=== PATIENT | male | born 1975 | race Two or more races ===

== ENCOUNTER 2017-05-17 15:41 | Inpatient (IN) | payer BC, OTHER ==
[~2017-05-17] VITALS: Ht 185.4 cm; Wt 108.0 kg
--- NOTE | 2017-05-17 15:49 | NUR ---
PRESENTS SELF TO ED DT CHEST DISCOMFORT, PRESSURE LIKE, 5/10, NON RADIATING SINCE THIS MORNING. PATIENT IS AAO4. APPEARS IN NO APPARENT DISTRESS, RESPIRATION EVEN AND UNLABORED, SKIN IS WARM TO TOUCH AND NON DIAPHROETIC. PATIENT IS AFEBRILE. GOWNED PT AND PLACED ON TELE MONITOR. VSS
[2017-05-17 16:14] LABS: BASOPHILS # (AUTO) 0.1 /CMM (0.0-0.2); BASOPHILS % (AUTO) 0.7 % (0.0-2.0); EOSINOPHILS # (AUTO) 0.2 /CMM (0.0-0.7); HEMATOCRIT 48 % (39-51); LYMPHOCYTES # (AUTO) 1.9 /CMM (0.8-4.8); LYMPHOCYTES % (AUTO) 22.1 % (20.0-44.0); MEAN CORPUSCULAR HEMOGLOBIN 30 PG (26.0-33.0); MEAN CORPUSCULAR HGB CONC 33 g/dl (31.0-36.0); MEAN CORPUSCULAR VOLUME 91 fL (80-96); MONOCYTES # (AUTO) 0.4 /CMM (0.1-1.30); MONOCYTES % (AUTO) 4.4 % (2.0-12.0); NEUTROPHILS # (AUTO) 5.8 /CMM (1.8-8.9); NEUTROPHILS % (AUTO) 70.8 % (43.0-81.0); PLATELET COUNT (AUTO) 267 /CMM (150-450); RDW COEFFICIENT OF VARIATION 11.8 (11.5-15.0); RED BLOOD CELL COUNT(AUTO) 5.26 MIL/uL (4.5-6.0); WHITE BLOOD COUNT (AUTO) 8.4 K/uL (4.3-11.0)
[2017-05-17 16:37] LABS: CALCIUM, SERUM 9.2 mg/dL (8.5-10.1); CARBON DIOXIDE 27 mmol/L (21-32); CHLORIDE 104 mmol/L (98-107); CREATININE 0.9 mg/dL (0.6-1.3); GLUCOSE 131 mg/dL (74-106); POTASSIUM 4.1 mmol/L (3.5-5.1); SODIUM SERUM 139 mmol/L (136-145); UREA NITROGEN, BLOOD 11 mg/dL (7-18)
[2017-05-17 16:45] LABS: TROPONIN I < 0.017 ng/mL (0.00-0.056)
[2017-05-17 16:52] LABS: B-TYPE NATRIURETIC PEPTIDE 6 PG/ML (0-125)
[2017-05-17 17:24] LABS: INR 0.99 (0.87-1.13); PROTHROMBIN TIME 10.6 SECS (9.5-12.7)
--- NOTE | 2017-05-17 17:36 | NUR ---
CALLED NURSING SUP. FOR TELE BED
--- NOTE | 2017-05-17 17:37 | NUR ---
JONAH AMBROSIO, MARS MORELAND NP DIPLOMATIC INTERPRETER/TRANSLATOR
--- NOTE | 2017-05-17 18:09 | NUR ---
PT GOING TO TELE 309-1
[2017-05-17 18:24] LABS: CHOLESTEROL 241 mg/dL (<200); HDL CHOLESTEROL 26 mg/dL (40-60); LDL 159 mg/dL (0-99); TRIGLYCERIDES 453 mg/dL (30-150)
--- NOTE | 2017-05-17 18:29 | NUR ---
REPORT GIVEN TO NAZANIN Henderson FOR TELE ROOM 309-1.
--- NOTE | 2017-05-17 18:34 | NUR ---
ECG BEING DONE AT BS.
[2017-05-17] MEDS ORDERED: NITROGLYCERIN PACKET 1 GM PACKET ONE (18:53)
[2017-05-17] MEDS ORDERED: ASPIRIN 325 MG TABLET ONE (18:53)
--- NOTE | 2017-05-17 18:55 | NUR ---
ER NURSE HERE AND GAVE PT. 325 MG OF ASA AND A NTG PATCH.VS TAKEN.SEE GRAPHIC AND HOOKED UP TO TELE.RHYTHM SINUS RATE OF 77. AT BEDSIDE.
[2017-05-17 19:00] VITALS: BP 123/94
[2017-05-17] MEDS ORDERED: NITROGLYCERIN PACKET 1 GM PACKET TOP SCH (19:00)
[2017-05-17] MEDS ORDERED: ASPIRIN 325 MG TABLET PO SCH (19:00)
--- NOTE | 2017-05-17 19:30 | NUR ---
RN INITIAL NOTES RECEIVED PATIENT IN BED, AWAKE AND ALERT ORIENTED X4. PATIENT CAME IN TO UNIT AT 1850, ADMIT PROCESS STARTED. PATIENT DENIES ANY CHEST PAIN/DISCOMFORT AT THIS TIME, NO SOB, NO DIZZINESS. PATIENT IS ON ROOM AIR, NO RESPIRATORY DISTRESS. ST ON TELE WITH HR OF 111. SKIN IS INTACT. BELONGING'S LIST COMPLETED, FILED IN CHART. UNDER EPIC, PER ENDORSEMENT, MARS MORELAND TO ADMIT PATIENT, WILL F/UP ACCORDINGLY FOR ORDERS. PATIENT ORIENTED TO UNIT POLICY AND PROTOCOLS, CALL LIGHT KEPT IN REACH. NEEDS ANTICIPATED AND MET. SAFETY AND COMFORT ENSURED. BED IN LOW AND LOCKED POSITION. UPDATED WITH PLAN OF CARE NEEDED. ANSWERED QUESTIONS ACCORDINGLY. WILL MONITOR.
[2017-05-17 20:00] VITALS: BP_SYST 123; BP_DIAS 84; BP_DIAS 94
--- NOTE | 2017-05-17 20:30 | NUR ---
RN NOTES PATIENT STATES THAT HE USES CPAP AT NIGHT FOR SLEEP AID. PER PATIENT, HIS WILL BE BRINGING THE CPAP MACHINE HE USES AT NIGHT AND WANTS TO USE IT. INFORMED PATIENT OF THE HOSPITAL POLICY AND PROTOCOL FOR OUTSIDE EQUIPMENT USE. VERBALIZED UNDERSTANDING AND PATIENT COMPLIANT WITH USE OF THE HOSPITAL CPAP MACHINE. INFORMED MARS MORELAND, FIREPERSON, ADMIT ORDERS OBTAINED AND PATIENT MAY USE CPAP. COORDINATED WITH RT. PER PATIENT, HIS CPAP IS AT 14. NOTED.
[2017-05-17] MEDS ORDERED: Z GUARD REMEDY 2 OZ OINT TP PRN (21:00)
[2017-05-17] MEDS ORDERED: MAGNESIUM HYDROXIDE 30 ML UDC PO PRN (21:00)
[2017-05-17] MEDS ORDERED: ENOXAPARIN SODIUM 40 MG/0.4 ML DISP.SYRIN SQ SCH (21:00)
[2017-05-17] MEDS: ASPIRIN 81 MG TAB.CHEW PO SCH (21:00)
[2017-05-17] MEDS ORDERED: HYDROCODONE/APAP 5/325MG 1 EACH TABLET PO PRN (21:00)
[2017-05-17] MEDS ORDERED: ZOLPIDEM TARTRATE 5 MG TABLET PO PRN (21:00)
[2017-05-17] MEDS ORDERED: ONDANSETRON HCL/PF 4 MG/2 ML VIAL IVP PRN (21:00)
[2017-05-17] MEDS ORDERED: ATORVASTATIN 40 MG TABLET ONE (21:15)
[2017-05-17] MEDS ORDERED: ENOXAPARIN SODIUM 40 MG/0.4 ML DISP.SYRIN SQ ONE (21:15)
[2017-05-17] MEDS ORDERED: ATORVASTATIN 40 MG TABLET PO SCH (22:00)
[2017-05-17] MEDS ORDERED: ACETAMINOPHEN 325 MG TABLET ONE (22:19)
[2017-05-17] MEDS: ACETAMINOPHEN 325 MG TABLET PO PRN (22:24)
--- NOTE | 2017-05-17 23:43 | NUR ---
RT PT PLACED ON CPAP MACHINE PER MD ORDERS WITH NOTED SETTING. ,PT TOLERATING SETTING WELL. NO SOB OR DISTRESS NOTED. WILL CONTINUE TO MONITOR PT. Addendum: 05/17/17 at 2349 by SUMAN SALDAÑA RT Amended: Links added.
--- NOTE | 2017-05-17 23:56 | NUR ---
RN NOTES RT AT BEDSIDE TO CONNECT PATIENT TO CPAP. SETTINGS ADJUSTED PER HOSPITAL'S CPAP MACHINE AND PER PATIENT'S TOLERANCE. TOLERATED SETTINGS WELL. NEEDS ANTICIPATED AND MET. SR ON TELE AT THIS TIME, HR OF 75.
[2017-05-18] VITALS (9 sets, daily range): BP systolic 103–140; BP diastolic 46–78
--- NOTE | 2017-05-18 00:16 | NUR ---
RN NOTES PATIENT NOTED TO BE REMOVING CPAP MASK, PER PATIENT HE IS UNCOMFORTABLE WITH THE CPAP MACHINE/MASK. PATIENT VERBALIZES UNDERSTANDING OF THE PROTOCOL FOR OUTSIDE EQUIPMENT USAGE, PATIENT STATED HE WILL TRY WITHOUT THE CPAP TONIGHT. PATIENT PLACED ON 2LPM OF O2 VIA NC FOR COMFORT, PATIENT APPRECIATIVE, WILL MONITOR CLOSELY. INFORMED RT, WILL REASSESS.
[2017-05-18] MEDS ORDERED: HYDROCODONE/APAP 5/325MG 1 EACH TABLET ONE (02:50)
[2017-05-18 04:42] LABS: BASOPHILS % (AUTO) 0.4 % (0.0-2.0); EOSINOPHILS # (AUTO) 0.2 /CMM (0.0-0.7); EOSINOPHILS % (AUTO) 2.8 % (0.0-6.0); HEMATOCRIT 43 % (39-51); HEMOGLOBIN 15.1 g/dL (13.5-17.5); LYMPHOCYTES % (AUTO) 34.4 % (20.0-44.0); MEAN CORPUSCULAR HEMOGLOBIN 32 PG (26.0-33.0); MEAN CORPUSCULAR HGB CONC 35 g/dl (31.0-36.0); MEAN CORPUSCULAR VOLUME 91 fL (80-96); MONOCYTES # (AUTO) 0.5 /CMM (0.1-1.30); MONOCYTES % (AUTO) 5.6 % (2.0-12.0); NEUTROPHILS % (AUTO) 56.8 % (43.0-81.0); PLATELET COUNT (AUTO) 236 /CMM (150-450); RDW COEFFICIENT OF VARIATION 12.2 (11.5-15.0); RED BLOOD CELL COUNT(AUTO) 4.72 MIL/uL (4.5-6.0); WHITE BLOOD COUNT (AUTO) 8.8 K/uL (4.3-11.0)
[2017-05-18 05:03] LABS: CALCIUM, SERUM 8.8 mg/dL (8.5-10.1); CREATININE 0.9 mg/dL (0.6-1.3); MAGNESIUM 1.9 mg/dL (1.8-2.4); PHOSPHORUS 4.3 mg/dL (2.5-4.9); POTASSIUM 3.9 mmol/L (3.5-5.1)
--- NOTE | 2017-05-18 06:53 | NUR ---
RN CLOSING NOTES PATIENT WITH NO ACUTE DISTRESS OBSERVED OVERNIGHT. PATIENT UNABLE TO REST/SLEEP FOR THE NIGHT D/T DISCOMFORT AND THE UNDERLYING SLEEP APNEA WITH PATIENT BEING UNABLE TO USE OWN CPAP MACHINE. PATIENT SR ON TELE WITH HR OF 69. NO ACUTE DISTRESS. PATIENT'S NEEDS ANTICIPATED AND MET. SAFETY AND COMFORT ENSURED. BED IN LOW AND LOCKED POSITION. CALL LIGHT IN REACH. WILL ENDORSE ACCORDINGLY FOR CONTINUITY OF CARE.
[2017-05-18] MEDS ORDERED: PANTOPRAZOLE 40 MG TABLET.DR PO SCH (07:30)
--- NOTE | 2017-05-18 07:31 | NUR ---
RN OPEN NOTES RECEIVED REPORT FROM MORTGAGE PROCESSOR NURSE. PATIENT IS IN BED,ALERT AND ORIENTED TO NAME TIME AND PLACE. NO SIGNS AND SYMPTOMS OF DISTRESS. DENIED PAIN. UNABLE TO SLEEP AT NIGHT DUE TO C-PAP MACHINE DOESN'T FIT. PATIENT REQUESTED TO USE HIS CPAP FROM HOME. BED IN LOW POSITION, LOCKED AND TWO SIDE RAILS ARE UP. WILL CONTINUE TO MONITOR AND ASSESS PATIENT'S CONDITION THROUGH OUT MY SHIFT
[2017-05-18] MEDS: ASPIRIN 81 MG TAB.CHEW PO SCH (08:19)
[2017-05-18] MEDS: ACETAMINOPHEN 325 MG TABLET PO PRN (08:19)
[2017-05-18] MEDS ORDERED: DILTIAZEM HCL 30 MG TABLET PO SCH (12:00)
[2017-05-18] MEDS ORDERED: ASPI81TA2 PO (15:21)
[2017-05-18] MEDS ORDERED: ATOR40TA PO (15:21)
[2017-05-18] MEDS ORDERED: DILT30TA14 PO (15:21)
[2017-05-18] MEDS ORDERED: LORA1TAB82 PO (15:54)
--- NOTE | 2017-05-18 16:55 | NUR ---
SWEATBAND PERFORATOR NOTES PATIENT'S DISCHARGE ORDER RECEIVED AND CARRIED OUT. ALL DISCHARGE INSTRUCTIONS EXPLAINED TO PATIENT. PATIENT VERBALIZED UNDERSTANDING. ALL PERSONAL BELONGING WITH PATIENTS AT TIME OF DISCHARGE. PATIENT'S PERSONAL CPAP WITH PATIENT AT TIME OF DISCHARGE. NO SIGNS ARE SYMPTOMS OF DISTRESS AT TIME OF DISCHARGE. DENIED PAIN. MEDICATION PRESCRIPTION GAVE TO PATIENT. ALL FORMS SIGNED AND PLACED IN THE CHART. IV SITE REMOVED. ID BAND REMOVED. I ESCORTED PATIENT AND TO LOBBY. DROVE PATIENT HOME VIA A PRIVATE CAR.
== END 2017-05-18 16:55 | disposition home or self-care (01) | DRG 201 ==
LOC: ER 15:44 → TELE 18:22
PROVIDERS: ADMIT Nurse Practitioner Acute Care; ATTEND Nurse Practitioner Acute Care
DX: I47.1 Supraventricular tachycardia (principal); E78.5 Hyperlipidemia, unspecified; R00.2 Palpitations; E66.9 Obesity, unspecified; G47.30 Sleep apnea, unspecified; F41.9 Anxiety disorder, unspecified; Z68.31 Body mass index [BMI] 31.0-31.9, adult
CPT/HCPCS: 36415; 71010-TC; 80048-TC; 80061-TC; 83735-TC; 83880; 84100-TC; 84484-TC; 85025-TC; 85378-TC; 85730-TC; 87081-TC; 93307-TC; A4606; J1650; Z7610